=== PATIENT | male | born 1950 | race Caucasian/White ===

== ENCOUNTER 2017-05-06 05:02 | Inpatient (IN) | END 2017-05-10 18:30 | disposition home or self-care (01) | DRG 293 ==

== ENCOUNTER 2017-05-28 08:35 | Inpatient (IN) | END 2017-06-01 14:14 | disposition home or self-care (01) | DRG 563 ==

== ENCOUNTER 2017-06-08 15:27 | Outpatient (CLI) | END 2017-06-08 16:20 | disposition home or self-care (01) ==

== ENCOUNTER 2017-06-18 02:01 | Inpatient (IN) | END 2017-07-01 18:57 | DRG 638 ==

== ENCOUNTER 2018-03-04 12:32 | Emergency (ER) | payer MEDICARE, OTHER ==
[~2018-03-04] VITALS: Ht 182.9 cm; Wt 90.9 kg
[~2018-03-04 12:32] MED LIST: ASPI-831 PO; ATOR40TA68 PO; BACL10TA PO; CHOL500010 PO; CIPR500T4 PO; DOCU-144 PO; DOXY100T2 PO; DULO30CA47 PO; FURO40TA4 PO; GABA300C16 PO; GLYB1TAB3 PO; HYDR-3498 PO; LISI10TA2 PO; MELO7.5T38 PO; NATE120T PO; POTA8CAP PO; SENN-36 PO; SITA100T11 PO; TRAM50TA2 PO; UDMOM PO
[2018-03-04 12:46] VITALS: Ht 182.9 cm; Wt 90.9 kg
--- NOTE | 2018-03-04 12:58 | ERD ---
ER Documentation Chief Complaint Chief Complaint glf-with head and left knee injury. no ko; pt was a code green HPI 67-year-old man here for evaluation of left knee pain and left forehead abrasion after mechanical fall while walking up a flight of stairs. He has a somewhat recent history of right humerus fracture and was following up at his orthopedic clinic prior to this episode. Patient fell mostly onto his left side he denies injury to his right upper extremity or shoulder. Patient denies headache or blurry vision, no loss of consciousness, no complaints of neck pain or stiffness, no chest pain or shortness of breath. ROS All systems reviewed and are negative except as per history of present illness. Medications Home Meds Active Scripts Doxycycline* (Vibramycin*) 100 Mg Tab, 100 MG PO BID for 14 Days, TAB Prov:CASTILLO CA MD 07/01/17 Ciprofloxacin Hcl* (Ciprofloxacin Hcl*) 500 Mg Tablet, 500 MG PO BID@,18 for 14 Days, TAB Prov:CASTILLO CA MD 07/01/17 Potassium Chloride* (Potassium Chloride*) 8 Meq Capsule.er, 8 MEQ PO DAILY, #60 CAP Prov:SANDRA GUY MD 05/10/17 Furosemide* (Furosemide*) 40 Mg Tablet, 40 MG PO DAILY@06, #60 TAB Prov:SANDRA GUY MD 05/10/17 Sennosides* (Senokot*) 1 Tab Tab, 2 TAB PO QHS for 30 Days Prov:KADE GORDILLO [employer] 04/03/14 Magnesium Hydroxide* (Eid' MOM*) 30 Ml Susp, 30 ML PO BID PRN for CONSTIPATION for 30 Days Prov:KADE GORDILLO [employer] 04/03/14 Hydrocodone Bit/Acetaminophen (Anexsia 5-325 Mg Tablet) 1 Tab Tab, 1 TAB PO Q4H PRN for moderate pain, #30 Prov:KADE GORDILLO [employer] 04/03/14 Docusate Sodium* (Colace*) 100 Mg Cap, 100 MG PO BID for 30 Days Prov:KADE GORDILLO [employer]ATOR 04/03/14 Nateglinide* (Nateglinide*) 120 Mg Tablet, 120 MG PO AC MEALS for 30 Days, TAB Prov:KADE GORDILLO [employer]ITATOR 04/03/14 Meloxicam* (Meloxicam*) 7.5 Mg Tablet, 15 MG PO DAILY for 30 Days, TAB Prov:KADE GORDILLO Arslan. [employer]ILITATOR 04/03/14 Lisinopril* (Lisinopril*) 10 Mg Tablet, 10 MG PO DAILY for 30 Days, TAB Prov:GORDILLOKADE Rosa [employer] F[employer]ILITATOR 04/03/14 Sitagliptin* (Januvia*) 100 Mg Tablet, 100 MG PO DAILY for 30 Days, TAB Prov:KADE GORDILLO [employer] F[employer]ILITATOR 04/03/14 Gabapentin* (Gabapentin*) 300 Mg Capsule, 300 MG PO TID for 30 Days, CAP Prov:KADE GORDILLO Rosa [employer]ILITATOR 04/03/14 Baclofen* (Baclofen*) 10 Mg Tablet, 10 MG PO QID for 30 Days, TAB Prov:KADE GORDILLO Rosa [employer]ILITATOR 04/03/14 Reported Medications Tramadol HCl (Tramadol HCl) 50 Mg Tablet, 50 MG PO Q6H PRN for PAIN, #120 TAB 06/18/17 Glyburide/Metformin HCl (Glucovance 5-500 mg Tablet) 1 Each Tablet, 1 EACH PO BID, TAB 06/18/17 Duloxetine Hcl* (Duloxetine Hcl*) 30 Mg Capsule.dr, 30 MG PO DAILY, #30 CAP 06/18/17 Cholecalciferol (Vitamin D3) 5,000 Unit Tablet, 5000 UNIT PO DAILY, TAB 06/18/17 Atorvastatin* (Atorvastatin*) 40 Mg Tablet, 40 MG PO DAILY, #30 TAB 06/18/17 Aspirin (Aspirin) 81 Mg Chew, 81 MG PO DAILY, TAB.CHEW 06/18/17 Allergies Allergies: Coded Allergies: No Known Allergy (Unverified , 05/28/17) PMhx/Soc Diabetes mellitus, diabetic foot ulcer status post fifth toe amputation, CAD, diastolic CHF, hypertension, right humerus fracture, peripheral neuropathy History of Surgery: Yes (brain surgery (1969), tonsillectomy (1964), adenoidectomy (1964) R lung sx ) Anesthesia Reaction: No Hx Neurological Disorder: No Hx Respiratory Disorders: No Hx Cardiac Disorders: Yes (murmur) Hx Psychiatric Problems: No Hx Miscellaneous Medical Probl: Yes (See PT NOTE) Hx Alcohol Use: No Hx Substance Use: No Hx Tobacco Use: No Smoking Status: Never smoker FmHx Family History: diabetes Physical Exam Vitals Vital Signs Date Temp Pulse Resp B/P (MAP) Pulse Ox O2 O2 Flow FiO2 Time Delivery Rate 03/04/18 98.0 98 18 135/72 97 12:46 (93) Physical Exam Const: No acute distress, afebrile, appears well-hydrated Head: Atraumatic Eyes: Normal Conjunctiva ENT: Normal External Ears, Nose and Mouth. Neck: Full range of motion. No meningismus. Resp: Clear to auscultation bilaterally Cardio: Regular rate and rhythm, no murmurs Abd: Soft, non tender, non distended. Normal bowel sounds Skin: No petechiae, abrasions to the left forehead and left anterior knee Back: No midline or flank tenderness Ext: No cyanosis, or edema. No bony tenderness over the extremities or obvious gross deformity Neur: Awake and alert x3, no focal deficits or facial asymmetry Psych: Normal Mood and Affect Results 24 hrs Current Medications Medications Dose Sig/Mark Start Time Status Last (Trade) Ordered Route PRN Stop Time Admin Dose Reason Admin Ketorolac 30 mg ONCE STAT 03/04/18 DC 03/04/18 Tromethamine IM 13:04 13:47 (Toradol) 03/04/18 13:05 Procedures/MDM Patient's tetanus immunization is up-to-date. I did give him Toradol 30 mg IM x1 for complaints of pain. CT scan of the brain was negative for acute bleed or shift although he does have a chronic appearing unchanged mass (meningioma). Please refer to radiologist dictation for full report. One AP view of the chest performed, read by me reveals no acute infiltrates, normal mediastinum, sharp costophrenic and cardiac borders, no air under the diaphragm. Otherwise unremarkable chest x-ray. X-ray left knee 3V Interpreted by me: Bones: No fracture Joints: No dislocation Foreign body: None Abrasions were irrigated and cleansed, antibiotic ointment was applied. Left knee was splinted with all cotton elastic bandage circumferentially for comfort and supportive measures. Patient feels much better at this time, and vital signs are normal, symptoms have improved. I did give strict instructions to return to the ED if symptoms continue or worsen, patient will otherwise follow-up with primary care physician. Patient understood instructions and agreed to plan. Disclaimer: Inadvertent spelling and grammatical errors are likely due to EHR/dictation software use and do not reflect on the overall quality of patient care. Also, please note that the electronic time recorded on this note does not necessarily reflect the actual time of the patient encounter. Departure Diagnosis: Primary Impression: Closed head injury Encounter type: initial encounter Qualified Codes: S09.90XA - Unspecified injury of head, initial encounter Additional Impressions: Forehead abrasion Encounter type: initial encounter Qualified Codes: S00.81XA - Abrasion of other part of head, initial encounter Knee abrasion Encounter type: initial encounter Laterality: left Qualified Codes: S80.212A - Abrasion, left knee, initial encounter Knee sprain Encounter type: initial encounter Involved ligament of knee: unspecified ligament Laterality: left Qualified Codes: S83.92XA - Sprain of unspecified site of left knee, initial encounter Condition: RICH Mac MD Mar 04, 2018 12:58
[2018-03-04] MEDS ORDERED: KETOROLAC 30 MG INJ IM STA (13:04)
[2018-03-04 18:07] VITALS: BP 122/71; PULSE 86; RESP 20
== END 2018-03-04 18:08 | disposition home or self-care (01) ==
LOC: E/R 12:32
DX: S09.90XA Unspecified injury of head, initial encounter (principal); S83.92XA Sprain of unspecified site of left knee, initial encounter; I25.10 Atherosclerotic heart disease of native coronary artery without angina pectoris; I11.0 Hypertensive heart disease with heart failure; I50.9 Heart failure, unspecified; E11.9 Type 2 diabetes mellitus without complications; R41.82 Altered mental status, unspecified; W10.8XXA Fall (on) (from) other stairs and steps, initial encounter; Y92.9 Unspecified place or not applicable; Z79.82 Long term (current) use of aspirin; Z79.84 Long term (current) use of oral hypoglycemic drugs
CPT/HCPCS: 70450; 71045; 73562; 96372; 99285; J1885

== ENCOUNTER 2018-03-06 09:03 | Emergency (ER) | payer MEDICARE ==
[~2018-03-06] VITALS: Ht 188 cm; Wt 98.6 kg
[2018-03-06] MEDS ORDERED: morphine 4 MG/ML VIAL IV STA (09:21)
[2018-03-06] MEDS ORDERED: SOD CHLORIDE 0.9% 1,000 ML IV STA ×2 (09:21→12:43)
[2018-03-06] MEDS ORDERED: ONDANSETRON 4 MG INJ IV STA ×2 (09:21→12:43)
[2018-03-06 09:39] VITALS: Ht 188 cm; Wt 98.6 kg
[2018-03-06] MEDS ORDERED: POLY17PO28 PO (11:11)
[2018-03-06] MEDS ORDERED: LISI10TA2 PO ×2 (11:11→11:22)
[2018-03-06] MEDS ORDERED: TRAM50TA PO (11:11)
[2018-03-06] MEDS ORDERED: POTA8CAP PO (11:12)
[2018-03-06] MEDS ORDERED: CHOL500010 PO (11:12)
[2018-03-06] MEDS ORDERED: GABA300C16 PO (11:13)
[2018-03-06] MEDS ORDERED: OFLO5DRO46 RIGHT EYE (11:19)
[2018-03-06] MEDS ORDERED: CLOT30CR24 TOP (11:19)
[2018-03-06] MEDS ORDERED: ASPI-817 PO (11:20)
[2018-03-06] MEDS ORDERED: ATOR40TA68 PO (11:20)
[2018-03-06] MEDS ORDERED: DULO30CA47 PO (11:20)
[2018-03-06] MEDS ORDERED: SITA100T11 PO (11:21)
[2018-03-06] MEDS ORDERED: FURO40TA4 PO (11:21)
[2018-03-06] MEDS ORDERED: GLUCOVANCE 5/500MG PO (11:27)
[2018-03-06] MEDS ORDERED: morphine 2 MG INJ IV STA (12:43)
--- NOTE | 2018-03-06 12:58 | ERD ---
ER Documentation Chief Complaint Chief Complaint bib paramedics from [facility]- mechanical fall HPI This is a 67-year-old male that [facility]. The patient was brought into the emergency department by EMS as he states that yesterday he had a mechanical fall while walking out of his doctor's office. He had fallen down one step. The patient hit his head. He is refusing to go and be evaluated in the hospital at that time. Indicates upon awakening this morning he was unable to ambulate due to pain. He was complaining of a left- sided headache. The patient is also complaining pain of his right hip. He denies any numbness or tingling of his lower extremities. He denies any back pain. He has no chest pain or shortness of breath. He did not experience any emesis. The patient takes daily aspirin. He does have a past medical history of diabetes depression anxiety ROS All systems reviewed and are negative except as per history of present illness. Medications Home Meds Reported Medications [Glucovance 5/500MG] No Conflict Check, TAB PO BID GLYBURIDE-METFORMIN 5-500MG, TAKE 1TAB-QAM & 2TAB-QPM 03/06/18 Sitagliptin* (Januvia*) 100 Mg Tablet, 100 MG PO DAILY, #30 TAB 03/06/18 Furosemide* (Furosemide*) 40 Mg Tablet, 40 MG PO QAM, TAB 03/06/18 Duloxetine Hcl* (Duloxetine Hcl*) 30 Mg Capsule.dr, 30 MG PO DAILY, #30 CAP 03/06/18 Atorvastatin* (Atorvastatin*) 40 Mg Tablet, 40 MG PO QHS, #30 TAB 03/06/18 Aspirin* (Aspirin* EC) 81 Mg Tablet.dr, 81 MG PO DAILY, TAB 03/06/18 Ofloxacin* (Ocuflox*) 0.3%-5 Ml Ophth Drops, 1 DROP RIGHT EYE QID, BOTTLE 03/06/18 Clotrimazole* (Clotrimazole* AF) 1% - 30 Gm Cream.gm., 1 APPLIC TOP BID, TUB 03/06/18 Gabapentin* (Gabapentin*) 300 Mg Capsule, 300 MG PO BID, #60 CAP 03/06/18 Cholecalciferol (Vitamin D3) 5,000 Unit Tablet, 5000 UNIT PO DAILY, TAB 03/06/18 Potassium Chloride* (Potassium Chloride*) 8 Meq Capsule.er, 8 MEQ PO DAILY, CAP 03/06/18 Lisinopril* (Lisinopril*) 10 Mg Tablet, 10 MG PO DAILY, #30 TAB 03/06/18 Polyethylene Glycol* (Polyethylene Glycol*) 17 Gm Powd.pack, 17 GM PO DAILY, #30 PACKET 03/06/18 Tramadol Hcl* (Ultram*) 50 Mg Tablet, 50 MG PO Q6H PRN for PAIN, TAB 03/06/18 Discontinued Reported Medications Lisinopril* (Lisinopril*) 10 Mg Tablet, 10 MG PO DAILY, #30 TAB 03/06/18 Tramadol HCl (Tramadol HCl) 50 Mg Tablet, 50 MG PO Q6H PRN for PAIN, #120 TAB 06/18/17 Glyburide/Metformin HCl (Glucovance 5-500 mg Tablet) 1 Each Tablet, 1 EACH PO BID, TAB 06/18/17 Duloxetine Hcl* (Duloxetine Hcl*) 30 Mg Capsule.dr, 30 MG PO DAILY, #30 CAP 06/18/17 Cholecalciferol (Vitamin D3) 5,000 Unit Tablet, 5000 UNIT PO DAILY, TAB 06/18/17 Atorvastatin* (Atorvastatin*) 40 Mg Tablet, 40 MG PO DAILY, #30 TAB 06/18/17 Aspirin (Aspirin) 81 Mg Chew, 81 MG PO DAILY, TAB.CHEW 06/18/17 Discontinued Scripts Doxycycline* (Vibramycin*) 100 Mg Tab, 100 MG PO BID for 14 Days, TAB Prov:CASTILLO CA MD 07/01/17 Ciprofloxacin Hcl* (Ciprofloxacin Hcl*) 500 Mg Tablet, 500 MG PO BID@,18 for 14 Days, TAB Prov:CASTILLO CA MD 07/01/17 Potassium Chloride* (Potassium Chloride*) 8 Meq Capsule.er, 8 MEQ PO DAILY, #60 CAP Prov:SANDRA GUY MD 05/10/17 Furosemide* (Furosemide*) 40 Mg Tablet, 40 MG PO DAILY@06, #60 TAB Prov:SANDRA GUY MD 05/10/17 Sennosides* (Senokot*) 1 Tab Tab, 2 TAB PO QHS for 30 Days Prov:KADE GORDILLO [employer] LINE 04/03/14 Magnesium Hydroxide* (Eid' MOM*) 30 Ml Susp, 30 ML PO BID PRN for CONSTIPATION for 30 Days Prov:KADE GORDILLO [employer] 04/03/14 Hydrocodone Bit/Acetaminophen (Anexsia 5-325 Mg Tablet) 1 Tab Tab, 1 TAB PO Q4H PRN for moderate pain, #30 Prov:KADE GORDILLO [employer] 04/03/14 Docusate Sodium* (Colace*) 100 Mg Cap, 100 MG PO BID for 30 Days Prov:KADE GORDILLO [employer] 04/03/14 Nateglinide* (Nateglinide*) 120 Mg Tablet, 120 MG PO AC MEALS for 30 Days, TAB Prov:KADE GORDILLO [employer] 04/03/14 Meloxicam* (Meloxicam*) 7.5 Mg Tablet, 15 MG PO DAILY for 30 Days, TAB Prov:KADE GORDILLO [employer] 04/03/14 Lisinopril* (Lisinopril*) 10 Mg Tablet, 10 MG PO DAILY for 30 Days, TAB Prov:KADE GORDILLO [employer] 04/03/14 Sitagliptin* (Januvia*) 100 Mg Tablet, 100 MG PO DAILY for 30 Days, TAB Prov:KADE GORDILLO [employer] 04/03/14 Gabapentin* (Gabapentin*) 300 Mg Capsule, 300 MG PO TID for 30 Days, CAP Prov:KADE GORDILLO [employer] 04/03/14 Baclofen* (Baclofen*) 10 Mg Tablet, 10 MG PO QID for 30 Days, TAB Prov:KADE GORDILLO [employer] 04/03/14 Allergies Allergies: Coded Allergies: No Known Allergy (Unverified , 03/06/18) PMhx/Soc History of Surgery: Yes (brain surgery (1969), tonsillectomy (1964), adenoidectomy (1964) R lung sx ) Anesthesia Reaction: No Hx Neurological Disorder: No Hx Respiratory Disorders: No Hx Cardiac Disorders: Yes (murmur) Hx Psychiatric Problems: No Hx Miscellaneous Medical Probl: Yes (See PT NOTE) Hx Alcohol Use: No Hx Substance Use: No Hx Tobacco Use: No Smoking Status: Never smoker Physical Exam Vitals Vital Signs Date Temp Pulse Resp B/P (MAP) Pulse Ox O2 O2 Flow FiO2 Time Delivery Rate 03/06/18 92 19 112/50 94 Room Air 12:00 (70) 03/06/18 97.5 89 18 114/51 98 10:12 (72) 03/06/18 97.8 93 16 131/62 97 09:39 (85) Physical Exam Constitutional:Well-developed. Well-nourished. HEENT:Normocephalic. Left temporal scalp hematoma with ecchymosis over the upper left lateral eyelid. No subconjunctival hemorrhage. No tenderness with movement of the extraocular muscles. Pupils were equal round reactive to light. Moist mucous membranes.No tonsillar exudates. Neck: No nuchal rigidity. No lymphadenopathy. Posterior cervical spine tenderness over C4-C5 with no step-offs. Respiratory: Not using accessory muscles of respiration.Lungs were clear to auscultation bilaterally. No rhonchi. No rales. No wheezing. Cardiovascular: Regular rate regular rhythm.No murmurs. No rubs were appreciated.S1, S2 normal. Distal pulses are palpable 2+ bilaterally. GI: Abdomen was soft. Nontender. Non Distended. No pulsatile abdominal masses or bruits. No rebound. No guarding. Bowel sounds were present and normal. Muscle skeletal: Tenderness over the anterior superior iliac spine of the right hip. Patient unable to lift the right lower extremity against gravity due to pain. Tenderness over the right patella. No laxity on valgus or varus stress testing of the left or the right lower extremity. No laxity on anterior posterior lateral compression of the pelvis Skin: No petechia, no purpura. No lesions on the palms or the soles of the feet. No maculopapular rash. NEURO: Patient was alert, awake, orientated x3.No facial droop. Gait not observed as patient was in too much pain to ambulate.Speech had regular rate and rhythm. No focal neurological deficits. Result Diagram: 03/06/18 1000 03/06/18 1000 Results 24 hrs Laboratory Tests Test 03/06/18 10:00 White Blood Count 13.0 10^3/ul Red Blood Count 4.05 10^6/ul Hemoglobin 11.9 g/dl Hematocrit 35.9 % Mean Corpuscular Volume 88.6 fl Mean Corpuscular Hemoglobin 29.4 pg Mean Corpuscular Hemoglobin Concent 33.1 g/dl Red Cell Distribution Width 14.0 % Platelet Count 146 10^3/UL Mean Platelet Volume 10.7 fl Immature Granulocytes % 0.500 % Neutrophils % 84.5 % Lymphocytes % 6.0 % Monocytes % 7.7 % Eosinophils % 0.8 % Basophils % 0.5 % Nucleated Red Blood Cells % 0.0 /100WBC Immature Granulocytes # 0.060 10^3/ul Neutrophils # 10.9 10^3/ul Lymphocytes # 0.8 10^3/ul Monocytes # 1.0 10^3/ul Eosinophils # 0.1 10^3/ul Basophils # 0.1 10^3/ul Nucleated Red Blood Cells # 0.0 10^3/ul Prothrombin Time 15.6 Sec Prothrombin Time Ratio 1.2 INR International Normalized Ratio 1.23 Activated Partial Thromboplast Time 35.4 Sec Sodium Level 138 mmol/L Potassium Level 4.0 mmol/L Chloride Level 101 mmol/L Carbon Dioxide Level 28 mmol/L Anion Gap 9 Blood Urea Nitrogen 18 mg/dl Creatinine 1.03 mg/dl Est Glomerular Filtrat Rate mL/min > 60 mL/min Glucose Level 172 mg/dl Calcium Level 9.5 mg/dl Total Bilirubin 0.9 mg/dl Direct Bilirubin 0.00 mg/dl Indirect Bilirubin 0.9 mg/dl Aspartate Amino Transf (AST/SGOT) 152 IU/L Alanine Aminotransferase (ALT/SGPT) 41 IU/L Alkaline Phosphatase 264 IU/L Creatine Kinase 68 IU/L Creatine Kinase Index 1.7 Creatinine Kinase MB (Mass) 1.17 ng/ml Troponin I 0.074 ng/ml Total Protein 7.9 g/dl Albumin 3.3 g/dl Globulin 4.60 g/dl Albumin/Globulin Ratio 0.71 Current Medications Medications Dose Sig/Mark Start Time Status Last (Trade) Ordered Route PRN Stop Time Admin Dose Reason Admin Sodium 1,000 ml @ Q1H STAT 03/06/18 DC 03/06/18 Chloride 1,000 mls/hr IV 09:21 10:03 03/06/18 10:20 Morphine 4 mg ONCE STAT 03/06/18 DC 03/06/18 Sulfate IV 09:21 10:03 (morphine) 03/06/18 09:23 Ondansetron 4 mg ONCE STAT 03/06/18 DC 03/06/18 HCl (Zofran IV 09:21 10:03 Inj) 03/06/18 09:23 Sodium 1,000 ml @ Q1H STAT 03/06/18 DC 03/06/18 Chloride 1,000 mls/hr IV 12:43 13:03 03/06/18 13:42 Morphine 2 mg ONCE STAT 03/06/18 DC 03/06/18 Sulfate IV 12:43 13:08 (morphine) 03/06/18 12:45 Ondansetron 4 mg ONCE STAT 03/06/18 DC 03/06/18 HCl (Zofran IV 12:43 13:05 Inj) 03/06/18 12:45 Procedures/MDM This is a 67-year-old male that presented to the emergency department with a mechanical fall. The patient was placed on a personnel monitor continuous pulse oximetry and IV access was attempted by nursing staff. The patient was given intravenous morphine and Zofran for analgesic control. I obtained a CT scan of the patient's head and cervical spine utilizing the Nexus criteria. This was reviewed by the radiologist myself and indicated the following: No intracranial hemorrhage or acute skull fracture. Atrophy. Bifrontal encephalomalacia and right temporal lobe encephalomalacia likely related to prior trauma. Small right frontal calcified meningioma. Status post left frontal craniectomy with marsupialization of the frontal sinus. CT scan of the cervical spine showed no cervical spine fracture. I obtained a chest radiograph and there is no evidence of pneumothorax or rib fracture. There is no severe electrolyte abnormalities or signs of coagulopathy. Utilizing the [place] ankle knee rules radiographic imaging was obtained of the patient's right knee. The patient had an acute nondisplaced comminuted right patellar fracture without other fracture dislocation. Patient no signs of compartment syndrome. He was placed in a knee immobilizer. The patient was offered admission but he stated he would prefer to be discharged home back to his residential assisted living facility. I indicated the patient will require outpatient orthopedic follow-up for definitive treatment. The patient was discharged home in fair condition. They were instructed to return to the emergency department at any time if there was any worsening of their condition. The patient stated they would follow up with their PCP in the next 24-48 hours to initiate a suitable medication regimen under the care of their PCP as well as to allow their PCP to monitor any drug reactions. The patient was discharged home with prescriptions after they gave informed consent to the new medication. They were also fully informed by myself on the adverse effects and adverse drug interactions in order to provide adequate safeguards to prevent possible adverse reactions to medications. Departure Diagnosis: Primary Impression: Fall (on) (from) other stairs and steps, initial encounter Additional Impressions: Facial contusion Encounter type: initial encounter Qualified Codes: S00.83XA - Contusion of other part of head, initial encounter Closed head injury Encounter type: initial encounter Qualified Codes: S09.90XA - Unspecified injury of head, initial encounter Comminuted fracture of right patella Encounter type: initial encounter Fracture type: closed Fracture alignment: nondisplaced Qualified Codes: S82.044A - Nondisplaced comminuted fracture of right patella, initial encounter for closed fracture Condition: CHRISTOPHER Mensah MD Mar 06, 2018 12:58
[2018-03-06] MEDS ORDERED: NAPR-985 PO (13:56)
[2018-03-06 15:12] VITALS: BP 136/70; PULSE 88; RESP 14
== END 2018-03-06 15:13 | disposition home or self-care (01) ==
LOC: E/R 09:03
DX: S00.83XA Contusion of other part of head, initial encounter (principal); S82.044A Nondisplaced comminuted fracture of right patella, initial encounter for closed fracture; R07.9 Chest pain, unspecified; W10.8XXA Fall (on) (from) other stairs and steps, initial encounter; Y92.531 Health care provider office as the place of occurrence of the external cause; Z79.82 Long term (current) use of aspirin; Z79.84 Long term (current) use of oral hypoglycemic drugs
CPT/HCPCS: 29505; 70450; 71045; 72125; 72170; 73510; 73562; 80053; 82550; 82553; 84484; 85025; 85610; 85730; 96374; 96375; 96376; 99285; J2270; J2405; J7030; 73502